=== PATIENT | male | born 2000 | race Caucasian/White ===

== ENCOUNTER 2023-09-20 14:42 | Outpatient (CLI) | payer OTHER, SELFPAY ==
--- NOTE | 2023-09-20 14:57 | XR_ITS ---
WS: [id number] Exam: XR chest 2V* [id number] Date/Time of Exam: 09/20/2023 2:57 PM Reason For Exam: INTERMITTENT CHEST PAIN Comparison 08/12/2018. Findings: The lungs are clear and fully expanded. Costophrenic angles are sharp. No infiltrates. Bronchovascula r relief appears normal. Cardiac silhouette is unremarkable. Bony elements are intact. IMPRESSION: Unremarkable chest radiograph.
--- NOTE | 2023-09-20 14:57 | XR_ITS ---
WS: [id number] Exam: XR knee RT 1-2V [id number] Date/Time of Exam: 09/20/2023 2:57 PM Reason For Exam: RT KNEE PAIN No fracture or dislocation. The joint compartments are preserved. Normal soft tissues. No joint effus ion. IMPRESSION: 1. Normal RIGHT knee.
--- NOTE | 2023-09-20 14:57 | XR_ITS ---
WS: [id number] Exam: XR knee LT 1-2V [id number] Date/Time of Exam: 09/20/2023 2:57 PM Reason For Exam: L KNEE PAIN No fracture or dislocation. The joint compartments are preserved. No joint effusion. Normal soft tiss ues. IMPRESSION: 1. Negative LEFT knee.
== END 2023-09-20 14:43 | disposition home or self-care (01) ==
PROVIDERS: Family Provider Nurse Practitioner Family; PCP Nurse Practitioner Family; Visit Provider Nurse Practitioner Family
DX: R07.9 Chest pain, unspecified (principal); M25.561 Pain in right knee; M25.562 Pain in left knee
CPT/HCPCS: 71046; 73560

== ENCOUNTER → 2024-01-24 09:48 | Outpatient (BNVA) | payer OTHER, SELFPAY | PROVIDERS: Family Provider Nurse Practitioner Family; PCP Nurse Practitioner Family; Visit Provider Family Medicine | DX: R68.89 Other general symptoms and signs (principal); J06.9 Acute upper respiratory infection, unspecified | CPT/HCPCS: 87400 ==